=== PATIENT | male | born 1995 | race African-American/Black ===

== ENCOUNTER 2018-05-12 00:53 | Emergency (ER) | payer OTHER ==
[~2018-05-12] VITALS: Ht 190.5 cm; Wt 89.3 kg
[2018-05-12 01:28] LABS: HEMATOCRIT 36.3 % (38.0-50.0); HEMOGLOBIN 12.8 G/DL (12.5-16.6); MCH 31.6 PG (29.0-34.0); MCHC 35.3 G/DL (30.0-36.0); MCV 89.6 FL (86-99); PLATELET COUNT 170 K/uL (156-360); RBC DIS.WIDTH-CV 13.1 % (11.8-14.6); RBC DIS.WIDTH-SD 43.4 % (39-53); RED BLOOD COUNT 4.05 M/uL (4.00-5.50); WHITE BLOOD COUNT 7.3 K/uL (4.1-10.2)
[2018-05-12 01:40] LABS: ALBUMIN 4.3 g/dL (3.2-4.8); CHLORIDE 103 mEq/L (99-109); POTASSIUM 4.4 mEq/L (3.7-5.4); SODIUM 138 mEq/L (136-147)
[2018-05-12 01:42] LABS: GLUCOSE 88 mg/dL (70-99)
[2018-05-12 01:43] LABS: TOTAL PROTEIN 7.5 g/dL (6.4-8.3)
[2018-05-12 01:44] LABS: TOTAL BILIRUBIN 0.3 mg/dL (0.0-1.0)
[2018-05-12 01:44] LABS: APPEARANCE CLEAR ((CLEAR)); BILIRUBIN NEGATIVE; BLOOD NEGATIVE; COLOR STRAW ((YELLOW)); GLUCOSE (STRIP) NEGATIVE; KETONES NEGATIVE; LEUKOCYTES NEGATIVE; NITRITE NEGATIVE; PROTEIN (STRIP) NEGATIVE; SPECIFIC GRAVITY 1.016 (1.000-1.030); UCUL ADDED? NO; UROBILINOGEN 0.2 MG/DL (0.2-1.0)
[2018-05-12 01:46] LABS: ALKALINE PHOSPHATASE 56 IU/L (3-129); CREATININE 0.9 mg/dL (0.6-1.3)
[2018-05-12 01:47] LABS: UREA NITROGEN (BUN) 15 mg/dL (9-23)
[2018-05-12 01:48] LABS: AST (GOT) 36 IU/L (2-34)
[2018-05-12 01:49] LABS: ALT (GPT) 42 IU/L (3-49); LIPASE 172 U/L (1.0-51.0)
[2018-05-12 01:55] LABS: GFR ESTIMATE (CALCULATED) > 59 mL/min/ (58.99-99999)
[2018-05-12] MEDS ORDERED: NORCO 5/3251 TABLET PO (03:15)
[2018-05-12] MEDS ORDERED: PEPCID20 MG PO (03:15)
[2018-05-12 03:30] VITALS: BP 114/61
== END 2018-05-12 03:32 | disposition home or self-care (01) ==
LOC: EME 00:53
DX: R10.13 Epigastric pain (principal); R74.8 Abnormal levels of other serum enzymes; J45.909 Unspecified asthma, uncomplicated; F17.200 Nicotine dependence, unspecified, uncomplicated; Z88.5 Allergy status to narcotic agent
CPT/HCPCS: 74177; 80053; 81003; 83690; 85027; 99281; 99284; J2405; J7030; S0028